=== PATIENT | male | born 1970 | race Caucasian/White ===

== ENCOUNTER → 2018-11-19 | Outpatient (CLI) | payer OTHER ==
[~2018-11-19] MED LIST: CHOL200024 PO; IBUP200C8 PO; MULT-257 PO; OXYC-302 PO; ROSU20TA2 PO; juice plus PO
[2018-11-19 16:12] LABS: HCT (SEDRATE) 50.6 % (39.2-51.8)
[2018-11-19 16:13] LABS: BASOPHILS # (AUTO) 0.04 x10^3/uL (0-0.1); BASOPHILS % (AUTO) 1 % (0-1); EOSINOPHILS # (AUTO) 0.11 x10^3/uL (0-0.4); EOSINOPHILS % (AUTO) 2 % (1-7); LYMPHOCYTES # (AUTO) 1.71 x10^3/uL (1-3.4); LYMPHOCYTES % (AUTO) 25 % (22-44); MD NO; MEAN CORPUSCULAR HEMOGLOBIN 28.9 pg (27.5-34.5); MEAN CORPUSCULAR HGB CONC 32.5 g/dL (33.2-36.2); MEAN CORPUSCULAR VOLUME 88.8 fL (81-97); MEAN PLATELET VOLUME 8.8 fL (7.4-10.4); MONOCYTES # (AUTO) 0.62 x10^3/uL (0.2-0.8); MONOCYTES % (AUTO) 9 % (2-9); NEUTROPHILS # (AUTO) 4.39 x10^3/uL (1.8-6.8); NEUTROPHILS % (AUTO) 64 % (42-75); PLATELET COUNT 250 x10^3/uL (130-400); RED BLOOD COUNT 5.66 x10^6/uL (4.38-5.82)
[2018-11-19 16:13] LABS: MICROSCOPIC NOT IND
[2018-11-19 16:18] LABS: CULTURE INDICATED? NO
[2018-11-19 16:20] LABS: INTERNATIONAL NORMALIZED RATIO 0.95 (0.93-1.1)
[2018-11-19 16:23] LABS: ALANINE AMINOTRANSFERASE 79 U/L (12-78); ALBUMIN 4.4 g/dL (3.4-5.0); ANION GAP 8 mmol/L (5-15); CALCIUM 9.1 mg/dL (8.5-10.1); CHLORIDE 105 mmol/L (98-107)
[2018-11-19 16:26] LABS: ALKALINE PHOSPHATASE 105 U/L (45-117); BILIRUBIN,TOTAL 0.4 mg/dL (0.2-1.0); CREATININE 1.27 mg/dL (0.7-1.3); TOTAL PROTEIN 8.7 g/dL (6.4-8.2)
== END | disposition home or self-care (01) ==
LOC: STAR 14:35
PROVIDERS: ATTEND Orthopaedic Surgery Orthopaedic Surgery of the Spine
DX: Z01.818 Encounter for other preprocedural examination (principal); M48.07 Spinal stenosis, lumbosacral region; M54.17 Radiculopathy, lumbosacral region
CPT/HCPCS: 36415; 71046; 80053; 80074; 81003; 85025; 85610; 85651; 85730; 87806; 93005; G0475

== ENCOUNTER 2018-12-08 06:42 | Inpatient (IN) | payer OTHER ==
[2018-11-19 16:02] VITALS: BP 148/94
[~2018-12-08] VITALS: Ht 180.3 cm; Wt 99.3 kg
[2018-12-08] MEDS ORDERED: FENTANYL PF 100 MCG/2ML ONE ×4 (06:46→12:40)
[2018-12-08] MEDS ORDERED: THROMBIN 5,000 UNIT VIAL TP ONE (06:47)
[2018-12-08] MEDS ORDERED: GENTAMICIN 80 MG/2 ML ONE ×2 (06:47→08:11)
[2018-12-08] MEDS ORDERED: VANCOMYCIN 1,000 MG ONE (06:47)
[2018-12-08] MEDS ORDERED: BUPIVACAINE/PF 0.5% ONE (06:48)
[2018-12-08] MEDS ORDERED: LIDOCAINE/PF 0.5% ,50ML ONE (06:48)
[2018-12-08] MEDS ORDERED: BACITRACIN 50,000 UNIT ONE (06:48)
[2018-12-08] MEDS ORDERED: EPINEPHRINE 1 MG/ML, 1ML ONE (06:48)
[2018-12-08] MEDS ORDERED: morphine SULFATE/PF 0.5 MG/ML, 10ML ONE (06:52)
[2018-12-08] MEDS ORDERED: LACTATED RINGERS 1,000 ML IV SCH (07:05)
[2018-12-08] MEDS ORDERED: GABAPENTIN PO (07:08)
[2018-12-08] MEDS ORDERED: CELEBREX PO (07:08)
[2018-12-08] MEDS ORDERED: KETAMINE 10 MG/ML, 20ML ONE (07:24)
[2018-12-08] MEDS ORDERED: MIDAZOLAM 1 MG/ML, 2ML ONE (07:25)
[2018-12-08] MEDS ORDERED: FENTANYL PF 250 MCG/5ML ONE (07:25)
[2018-12-08] MEDS ORDERED: GLYCOPYRROLATE 0.2MG/1ML, 5ML ONE (07:31)
[2018-12-08] MEDS ORDERED: PROPOFOL 200 ML ONE (07:31)
[2018-12-08] MEDS ORDERED: ONDANSETRON 2MG/ML, 2ML ONE (07:31)
[2018-12-08] MEDS ORDERED: SUCCINYLCHOLINE 20 MG/ML, 10ML ONE (07:31)
[2018-12-08] MEDS ORDERED: PROPOFOL 10 MG/ML, 20ML ONE (07:31)
[2018-12-08] MEDS ORDERED: DEXAMETHASONE 4 MG/ML, 1ML ONE (07:31)
[2018-12-08] MEDS ORDERED: NEOSTIGMINE 1 MG/ML, 10ML ONE (07:31)
[2018-12-08] MEDS ORDERED: ROCURONIUM 10MG/ML,5ML ONE (07:31)
[2018-12-08] MEDS ORDERED: CEFAZOLIN 1,000 MG ONE (07:31)
[2018-12-08] MEDS ORDERED: EPHEDRINE 50 MG/ML, 1ML ONE (07:42)
[2018-12-08] MEDS ORDERED: ONDANSETRON ODT 8 MG PO PRN (09:00)
[2018-12-08] MEDS ORDERED: OXYcodone 5 MG/5 ML ORAL.SOL UDC PO PRN (09:00)
[2018-12-08] MEDS ORDERED: MEPERIDINE/PF 25MG/0.5ML IVPush PRN (09:00)
[2018-12-08] MEDS ORDERED: PROMETHAZINE 25 MG/ML, 1ML IV PRN (09:00)
[2018-12-08] MEDS ORDERED: ONDANSETRON 2MG/ML, 2ML IV PRN ×2 (09:00→15:00)
[2018-12-08] MEDS ORDERED: ACETAMINOPHEN 325 MG TABLET PO PRN (09:00)
[2018-12-08] MEDS ORDERED: LIDOCAINE-MPF 2% ,5ML ONE ×3 (10:50)
[2018-12-08] MEDS: FENTANYL PF 100 MCG/2ML IV PRN ×2 (12:41→12:51)
[2018-12-08] MEDS ORDERED: OXYcodone 5 MG/5 ML ORAL.SOL UDC ONE (12:54)
[2018-12-08] MEDS ORDERED: HYDROmorphone 2 MG/ML, 1ML ONE (12:59)
[2018-12-08] MEDS: HYDROmorphone 2 MG/ML, 1ML IVPush PRN ×2 (13:02→13:45)
[2018-12-08] MEDS ORDERED: RACEPINEPHRINE INH 2.25%, 0.5ML ONE (13:21)
[2018-12-08] MEDS ORDERED: RACEPINEPHRINE INH 2.25%, 0.5ML NPPB PRN (13:30)
[2018-12-08 14:53] VITALS: BP 92/58
[2018-12-08] MEDS: LABETALOL 5MG/ML, 20ML IV SCH ×2 (14:58→23:00)
[2018-12-08] MEDS ORDERED: DIAZEPAM 5 MG/ML, 2ML IV PRN (15:00)
[2018-12-08] MEDS ORDERED: HYDROcodone/APAP 5/325 TABLET PO PRN (15:00)
[2018-12-08] MEDS: D5%-0.9% NACL+KCL 20MEQ 1,000 ML IV SCH (15:41)
[2018-12-08] MEDS ORDERED: CEFAZOLIN PMX 1GM/50ML 50 ML IVPB SCH (19:00)
[2018-12-08 19:55] VITALS: BP 100/59
[2018-12-08] MEDS: DIAZEPAM 5 MG TABLET PO PRN (20:04)
[2018-12-08] MEDS: OXYcodone/APAP 5/325MG TABLET PO PRN (23:49)
[2018-12-09 00:01] VITALS: BP 105/58
[2018-12-09] MEDS: D5%-0.9% NACL+KCL 20MEQ 1,000 ML IV SCH ×3 (00:07→17:22)
[2018-12-09] MEDS ORDERED: CEFAZOLIN PMX 1GM/50ML 50 ML IVPB SCH (03:00)
[2018-12-09] MEDS: DIAZEPAM 5 MG TABLET PO PRN ×3 (03:30→19:15)
[2018-12-09 03:45] VITALS: BP 112/67
[2018-12-09] MEDS: OXYcodone/APAP 5/325MG TABLET PO PRN ×3 (04:03→20:24)
[2018-12-09 07:02] VITALS: BP 103/62
[2018-12-09] MEDS: LABETALOL 5MG/ML, 20ML IV SCH (08:07)
[2018-12-09] MEDS: SENNA/DOCUSATE TABLET PO SCH (08:15)
[2018-12-09] MEDS: GABAPENTIN 300 MG CAPSULE PO SCH ×2 (08:15→20:24)
[2018-12-09] MEDS ORDERED: LABETALOL 5MG/ML, 20ML IV PRN (08:30)
[2018-12-09] MEDS: CEFAZOLIN PMX 1GM/50ML 50 ML IV SCH ×2 (11:33→19:15)
[2018-12-09 12:44] VITALS: BP 116/74
[2018-12-09 20:49] VITALS: BP 108/64
[2018-12-10] MEDS: OXYcodone/APAP 5/325MG TABLET PO PRN ×3 (00:28→08:55)
[2018-12-10] MEDS: D5%-0.9% NACL+KCL 20MEQ 1,000 ML IV SCH ×3 (00:28→17:05)
[2018-12-10 00:53] VITALS: BP 102/63
[2018-12-10] MEDS: DIAZEPAM 5 MG TABLET PO PRN ×3 (02:52→22:26)
[2018-12-10] MEDS: CEFAZOLIN PMX 1GM/50ML 50 ML IV SCH ×2 (02:53→11:19)
[2018-12-10 07:05] VITALS: BP 113/71
[2018-12-10] MEDS: GABAPENTIN 300 MG CAPSULE PO SCH ×3 (08:49→20:52)
[2018-12-10] MEDS: SENNA/DOCUSATE TABLET PO SCH (08:49)
[2018-12-10 12:20] VITALS: BP 108/68
[2018-12-10] MEDS: DEXAMETHASONE 4 MG/ML, 1ML IVPush SCH (18:32)
[2018-12-10] MEDS ORDERED: OXYcodone IR 5MG TABLET PO PRN ×2 (19:00)
[2018-12-10 19:45] VITALS: BP 109/69
[2018-12-10] MEDS: OXYcodone IR 5MG TABLET PO PRN (19:49)
[2018-12-10] MEDS: ACETAMINOPHEN 500 MG TABLET PO SCH (19:49)
[2018-12-11] MEDS: D5%-0.9% NACL+KCL 20MEQ 1,000 ML IV SCH ×3 (01:00→17:00)
[2018-12-11] MEDS: DEXAMETHASONE 4 MG/ML, 1ML IVPush SCH ×4 (01:41→22:13)
[2018-12-11] MEDS: ACETAMINOPHEN 500 MG TABLET PO SCH ×4 (01:41→22:13)
[2018-12-11 03:37] VITALS: BP 107/68
[2018-12-11] MEDS: OXYcodone IR 5MG TABLET PO PRN (03:54)
[2018-12-11] MEDS: DIAZEPAM 5 MG TABLET PO PRN ×3 (04:46→23:58)
[2018-12-11 07:06] VITALS: BP 118/70
[2018-12-11] MEDS: SENNA/DOCUSATE TABLET PO SCH (08:07)
[2018-12-11] MEDS: GABAPENTIN 300 MG CAPSULE PO SCH ×3 (08:08→22:13)
[2018-12-11 13:28] VITALS: BP 133/69
[2018-12-11 20:31] VITALS: BP 115/69
[2018-12-12 03:36] VITALS: BP 135/83
[2018-12-12] MEDS: DEXAMETHASONE 4 MG/ML, 1ML IVPush SCH ×4 (04:08→22:31)
[2018-12-12] MEDS: ACETAMINOPHEN 500 MG TABLET PO SCH ×4 (04:08→22:31)
[2018-12-12 07:16] VITALS: BP 129/71
[2018-12-12] MEDS: SENNA/DOCUSATE TABLET PO SCH (07:53)
[2018-12-12] MEDS: DIAZEPAM 5 MG TABLET PO PRN ×3 (07:53→20:52)
[2018-12-12] MEDS: GABAPENTIN 300 MG CAPSULE PO SCH ×3 (07:53→20:53)
[2018-12-12] MEDS: D5%-0.9% NACL+KCL 20MEQ 1,000 ML IV SCH ×2 (08:00→21:00)
[2018-12-12 12:20] VITALS: BP 112/66
[2018-12-12] MEDS ORDERED: DIAZ5TAB4 PO (16:44)
[2018-12-12 18:35] VITALS: BP 153/92
[2018-12-13 00:17] VITALS: BP 131/76
[2018-12-13] MEDS: DIAZEPAM 5 MG TABLET PO PRN ×2 (03:07→09:32)
[2018-12-13] MEDS: DEXAMETHASONE 4 MG/ML, 1ML IVPush SCH ×2 (04:25→10:05)
[2018-12-13] MEDS: ACETAMINOPHEN 500 MG TABLET PO SCH ×2 (04:25→10:05)
[2018-12-13] MEDS: D5%-0.9% NACL+KCL 20MEQ 1,000 ML IV SCH ×2 (05:00→11:14)
[2018-12-13] MEDS: OXYcodone IR 5MG TABLET PO PRN ×2 (06:50→11:43)
[2018-12-13 07:06] VITALS: BP 124/66
[2018-12-13] MEDS: SENNA/DOCUSATE TABLET PO SCH (08:45)
[2018-12-13] MEDS: GABAPENTIN 300 MG CAPSULE PO SCH (08:45)
[2018-12-13] MEDS ORDERED: OXYC5CAP2 PO (08:54)
== END 2018-12-13 13:11 | disposition home or self-care (01) | DRG 516 ==
LOC: ORIP 06:42 → 4NOR 14:22
PROVIDERS: ADMIT Orthopaedic Surgery Orthopaedic Surgery of the Spine; ATTEND Orthopaedic Surgery Orthopaedic Surgery of the Spine
PROC: 0SW304Z Revision of Internal Fixation Device in Lumbosacral Joint, Open Approach (ICD-10-PCS; 2018-12-08)
PROC: 4A11X4G Monitoring of Peripheral Nervous Electrical Activity, Intraoperative, External Approach (ICD-10-PCS; 2018-12-08)
PROC: 07DR0ZZ Extraction of Iliac Bone Marrow, Open Approach (ICD-10-PCS; 2018-12-08)
PROC: 01NB0ZZ Release Lumbar Nerve, Open Approach (ICD-10-PCS; principal; 2018-12-08 07:30)
DX: T84.216A Breakdown (mechanical) of internal fixation device of vertebrae, initial encounter (principal); M96.0 Pseudarthrosis after fusion or arthrodesis; M54.16 Radiculopathy, lumbar region; Y83.8 Other surgical procedures as the cause of abnormal reaction of the patient, or of later complication, without mention of misadventure at the time of the procedure; Y92.89 Other specified places as the place of occurrence of the external cause
CPT/HCPCS: 36415; 72100; J3490; S0020; 85014; 85018; 86850; 86900; 86923; 94640; C1713; G0378; J0171; J0690; J1100; J1170; J2001; J2250; J2270; J2274; J2405; J2704; J2710; J3010; J3370; C1751; C1762; J0330; J1580; J3480; J7120

== ENCOUNTER 2019-11-23 13:12 | Outpatient (CLI) | payer OTHER ==
[~2019-11-23 13:12] MED LIST changes: +CELEBREX PO; +DIAZ5TAB4 PO; +GABAPENTIN PO; +OXYC5CAP2 PO
[2019-11-23] MEDS ORDERED: GABA600T7 PO (13:41)
[2019-11-23 14:26] LABS: BASOPHILS # (AUTO) 0.03 x10^3/uL (0-0.1); BASOPHILS % (AUTO) 0 % (0-1); EOSINOPHILS % (AUTO) 1 % (1-7); LYMPHOCYTES # (AUTO) 2.06 x10^3/uL (1-3.4); LYMPHOCYTES % (AUTO) 30 % (22-44); MD NO; MEAN CORPUSCULAR HEMOGLOBIN 28.8 pg (27.5-34.5); MEAN CORPUSCULAR HGB CONC 33.2 g/dL (33.2-36.2); MEAN CORPUSCULAR VOLUME 86.7 fL (81-97); MEAN PLATELET VOLUME 8.8 fL (7.4-10.4); MONOCYTES # (AUTO) 0.81 x10^3/uL (0.2-0.8); MONOCYTES % (AUTO) 12 % (2-9); NEUTROPHILS # (AUTO) 3.79 x10^3/uL (1.8-6.8); NEUTROPHILS % (AUTO) 56 % (42-75); PLATELET COUNT 254 x10^3/uL (130-400); RED BLOOD COUNT 5.47 x10^6/uL (4.38-5.82); RED CELL DISTRIBUTION WIDTH 14.3 % (9.4-14.8)
[2019-11-23 14:35] LABS: MICROSCOPIC NOT IND
[2019-11-23 14:35] LABS: ALANINE AMINOTRANSFERASE 43 U/L (12-78); ANION GAP 7 mmol/L (5-15); CALCIUM 8.9 mg/dL (8.5-10.1); CHLORIDE 109 mmol/L (98-107); CREATININE 1.23 mg/dL (0.7-1.3)
[2019-11-23 14:38] LABS: ALKALINE PHOSPHATASE 112 U/L (45-117); BILIRUBIN,TOTAL 0.4 mg/dL (0.2-1.0); TOTAL PROTEIN 8.1 g/dL (6.4-8.2)
[2019-11-23 14:48] LABS: HCT (SEDRATE) 47.9 % (39.2-51.8)
[2019-11-23 17:46] LABS: INTERNATIONAL NORMALIZED RATIO 0.93 (0.93-1.1); PROTHROMBIN TIME 9.9 Seconds (9.6-11.5)
== END 2019-11-23 23:59 | disposition home or self-care (01) ==
LOC: STAR 13:12
PROVIDERS: ATTEND Orthopaedic Surgery Orthopaedic Surgery of the Spine
DX: Z01.818 Encounter for other preprocedural examination (principal); M48.061 Spinal stenosis, lumbar region without neurogenic claudication; M54.16 Radiculopathy, lumbar region
CPT/HCPCS: 36415; 71046; 80053; 80074; 81003; 85025; 85610; 85651; 85730; 87806; 93005; G0475

== ENCOUNTER 2019-11-30 05:45 | Inpatient (IN) | payer OTHER ==
[~2019-11-30] VITALS: Ht 180.3 cm; Wt 99.0 kg
[~2019-11-30 05:45] MED LIST changes: +GABA600T7 PO
[2019-11-30] MEDS ORDERED: HEPARIN 1,000 UNITS/ML, 30ML ONE (06:14)
[2019-11-30] MEDS ORDERED: LACTATED RINGERS 1,000 ML IV SCH (06:34)
[2019-11-30 06:37] VITALS: BP 121/87
[2019-11-30] MEDS ORDERED: CHLORHEXIDINE 15 ML UDC ONE (06:41)
[2019-11-30] MEDS ORDERED: GENTAMICIN 80 MG/2 ML ONE ×2 (06:44→07:21)
[2019-11-30] MEDS ORDERED: BUPIVACAINE/PF-EPI 0.5% 1:200K ONE (06:44)
[2019-11-30] MEDS ORDERED: FENTANYL PF 100 MCG/2ML ONE (06:44)
[2019-11-30] MEDS ORDERED: morphine SULFATE/PF 0.5 MG/ML, 10ML ONE (06:45)
[2019-11-30] MEDS ORDERED: LIDOCAINE 1%-EPI 1:100K, 20ML ONE (06:45)
[2019-11-30] MEDS ORDERED: VANCOMYCIN 1,000 MG ONE (06:45)
[2019-11-30] MEDS ORDERED: BACITRACIN 50,000 UNIT ONE (06:45)
[2019-11-30] MEDS ORDERED: CHLORHEXIDINE 15 ML UDC MM ONE (07:00)
[2019-11-30] MEDS ORDERED: KETAMINE 10 MG/ML, 20ML ONE (07:18)
[2019-11-30] MEDS ORDERED: LABETALOL 5MG/ML, 20ML ONE (07:18)
[2019-11-30] MEDS ORDERED: LIDOCAINE 1%, 20ML ONE (07:18)
[2019-11-30] MEDS ORDERED: MAGNESIUM SULFATE 1 GM/2 ML ONE (07:18)
[2019-11-30] MEDS ORDERED: GLYCOPYRROLATE 0.2MG/1ML, 5ML ONE (07:24)
[2019-11-30] MEDS ORDERED: DEXAMETHASONE 4 MG/ML, 1ML ONE (07:24)
[2019-11-30] MEDS ORDERED: MIDAZOLAM 1 MG/ML, 2ML ONE ×2 (07:24)
[2019-11-30] MEDS ORDERED: LIDOCAINE-MPF 2% ,5ML ONE (07:24)
[2019-11-30] MEDS ORDERED: PROPOFOL 10 MG/ML, 20ML ONE (07:24)
[2019-11-30] MEDS ORDERED: FENTANYL PF 250 MCG/5ML ONE (07:24)
[2019-11-30] MEDS ORDERED: ROCURONIUM 10MG/ML,5ML ONE (07:24)
[2019-11-30] MEDS ORDERED: HYDROcodone/APAP 7.5-325MG/15ML UDC PO PRN (07:30)
[2019-11-30] MEDS ORDERED: hydrALAzine 20 MG/ML, 1ML IV PRN (07:30)
[2019-11-30] MEDS ORDERED: ONDANSETRON 2MG/ML, 2ML IVPush PRN (07:30)
[2019-11-30] MEDS ORDERED: EPHEDRINE 50 MG/ML, 1ML IM PRN (07:30)
[2019-11-30] MEDS ORDERED: DIPHENHYDRAMINE 50 MG/ML, 1ML IVPush PRN (07:30)
[2019-11-30] MEDS ORDERED: MEPERIDINE/PF 25MG/0.5ML IVPush PRN (07:30)
[2019-11-30] MEDS ORDERED: morphine SULFATE 10 MG/ML, 1ML IVPush PRN (07:30)
[2019-11-30] MEDS ORDERED: LORazepam 2 MG/ML, 1ML IVPush PRN (07:30)
[2019-11-30] MEDS ORDERED: METOCLOPRAMIDE 5 MG/ML, 2ML IVPush PRN (07:30)
[2019-11-30] MEDS ORDERED: EPHEDRINE 50 MG/ML, 1ML IVPush PRN (07:30)
[2019-11-30] MEDS ORDERED: HALOPERIDOL 5 MG/ML IV PRN (07:30)
[2019-11-30] MEDS ORDERED: OXYcodone 5 MG/5 ML ORAL.SOL UDC PO PRN (07:30)
[2019-11-30] MEDS ORDERED: ACETAMINOPHEN 325 MG TABLET PO PRN (07:30)
[2019-11-30] MEDS ORDERED: LABETALOL 5MG/ML, 20ML IV PRN ×2 (07:30→14:30)
[2019-11-30] MEDS ORDERED: MIDAZOLAM 1 MG/ML, 2ML IV PRN (07:30)
[2019-11-30] MEDS ORDERED: FENTANYL PF 100 MCG/2ML IV PRN (07:30)
[2019-11-30] MEDS ORDERED: DIAZEPAM 5 MG/ML, 2ML IVPush PRN (07:30)
[2019-11-30] MEDS ORDERED: ALBUTEROL/IPRATROPIUM 2.5MG/0.5MG, 3 ML NPPB PRN (07:30)
[2019-11-30] MEDS ORDERED: CEFAZOLIN 1,000 MG ONE (07:33)
[2019-11-30] MEDS ORDERED: METHOCARBAMOL 1,000 MG in DEXTROSE 5% 100 ML IV PRN (10:00)
[2019-11-30] MEDS ORDERED: HYDROmorphone 2 MG/ML, 1ML ONE (11:55)
[2019-11-30] MEDS ORDERED: DIAZEPAM 5 MG/ML, 2ML ONE (11:56)
[2019-11-30] MEDS: HYDROmorphone 1 MG/ML, 1ML INJ IVPush PRN ×4 (11:58→12:30)
[2019-11-30 13:05] VITALS: BP 105/59
[2019-11-30] MEDS ORDERED: ONDANSETRON 2MG/ML, 2ML IV PRN (14:30)
[2019-11-30] MEDS ORDERED: HYDROcodone/APAP 5/325 TABLET PO PRN (14:30)
[2019-11-30] MEDS ORDERED: DIAZEPAM 5 MG/ML, 2ML IV PRN (14:30)
[2019-11-30] MEDS: D5%-0.9% NACL+KCL 20MEQ 1,000 ML IV SCH (16:39)
[2019-11-30] MEDS: CEFAZOLIN PMX 1GM/50ML 50 ML IVPB SCH (18:14)
[2019-11-30] MEDS: GABAPENTIN 300 MG CAPSULE PO SCH ×2 (18:14→22:35)
[2019-11-30 19:50] VITALS: BP 108/70
[2019-11-30] MEDS: ATORVASTATIN 80 MG TABLET PO SCH (21:00)
[2019-11-30 23:53] VITALS: BP 110/68
[2019-12-01] MEDS: DIAZEPAM 5 MG TABLET PO PRN ×4 (00:45→22:16)
[2019-12-01] MEDS: D5%-0.9% NACL+KCL 20MEQ 1,000 ML IV SCH ×3 (00:45→21:25)
[2019-12-01] MEDS: CEFAZOLIN PMX 1GM/50ML 50 ML IVPB SCH ×3 (01:38→18:20)
[2019-12-01 02:48] VITALS: BP 117/76
[2019-12-01 07:40] VITALS: BP 112/71
[2019-12-01] MEDS: GABAPENTIN 300 MG CAPSULE PO SCH ×3 (08:30→22:17)
[2019-12-01] MEDS: MULTIVITAMIN 1 TABLET PO SCH (08:30)
[2019-12-01] MEDS: SENNA/DOCUSATE TABLET PO SCH (08:36)
[2019-12-01 12:08] VITALS: BP 110/70
[2019-12-01 20:30] VITALS: BP 129/61
[2019-12-01] MEDS: ATORVASTATIN 80 MG TABLET PO SCH (21:00)
[2019-12-02] MEDS: CEFAZOLIN PMX 1GM/50ML 50 ML IVPB SCH ×3 (03:15→19:00)
[2019-12-02 03:39] VITALS: BP 124/80
[2019-12-02] MEDS: D5%-0.9% NACL+KCL 20MEQ 1,000 ML IV SCH ×2 (04:06→16:01)
[2019-12-02] MEDS: DIAZEPAM 5 MG TABLET PO PRN ×3 (04:12→18:15)
[2019-12-02 07:45] VITALS: BP 144/72
[2019-12-02] MEDS: GABAPENTIN 300 MG CAPSULE PO SCH ×3 (09:09→20:55)
[2019-12-02] MEDS: MULTIVITAMIN 1 TABLET PO SCH (09:09)
[2019-12-02] MEDS: SENNA/DOCUSATE TABLET PO SCH (09:10)
[2019-12-02 14:15] VITALS: BP 126/83
[2019-12-02] MEDS: OXYcodone IR 5MG TABLET PO PRN (15:53)
[2019-12-02 19:05] VITALS: BP 131/87
[2019-12-02] MEDS: ATORVASTATIN 80 MG TABLET PO SCH (20:52)
[2019-12-03] MEDS: DIAZEPAM 5 MG TABLET PO PRN ×3 (00:21→12:24)
[2019-12-03] MEDS: D5%-0.9% NACL+KCL 20MEQ 1,000 ML IV SCH ×2 (02:25→12:25)
[2019-12-03 02:31] VITALS: BP 115/67
[2019-12-03] MEDS ORDERED: ACETAMINOPHEN 325 MG TABLET PO PRN (03:45)
[2019-12-03 08:00] VITALS: BP 120/83
[2019-12-03] MEDS: SENNA/DOCUSATE TABLET PO SCH (09:29)
[2019-12-03] MEDS: GABAPENTIN 300 MG CAPSULE PO SCH (09:29)
[2019-12-03] MEDS: MULTIVITAMIN 1 TABLET PO SCH (09:29)
[2019-12-03] MEDS ORDERED: OXYC5CAP2 PO (11:52)
[2019-12-03 13:33] VITALS: BP 122/89
[2019-12-03] MEDS: OXYcodone IR 5MG TABLET PO PRN (14:55)
== END 2019-12-03 15:08 | disposition home or self-care (01) | DRG 460 ==
LOC: ORIP 05:45 → 4NE 12:59 → DCLOUNGE 12-03 15:02
PROVIDERS: ADMIT Orthopaedic Surgery Orthopaedic Surgery of the Spine; ATTEND Orthopaedic Surgery Orthopaedic Surgery of the Spine
PROC: 00BY0ZZ Excision of Lumbar Spinal Cord, Open Approach (ICD-10-PCS; 2019-11-30)
PROC: 01NB0ZZ Release Lumbar Nerve, Open Approach (ICD-10-PCS; 2019-11-30)
PROC: 00PV0YZ Removal of Other Device from Spinal Cord, Open Approach (ICD-10-PCS; 2019-11-30)
PROC: 0QB30ZZ Excision of Left Pelvic Bone, Open Approach (ICD-10-PCS; 2019-11-30)
PROC: 0QH004Z Insertion of Internal Fixation Device into Lumbar Vertebra, Open Approach (ICD-10-PCS; 2019-11-30)
PROC: 4A10X4G Monitoring of Central Nervous Electrical Activity, Intraoperative, External Approach (ICD-10-PCS; 2019-11-30)
PROC: 00HU33Z Insertion of Infusion Device into Spinal Canal, Percutaneous Approach (ICD-10-PCS; 2019-11-30)
PROC: 0SG30AJ Fusion of Lumbosacral Joint with Interbody Fusion Device, Posterior Approach, Anterior Column, Open Approach (ICD-10-PCS; principal; 2019-11-30 11:30)
DX: M48.061 Spinal stenosis, lumbar region without neurogenic claudication (principal); M53.2X6 Spinal instabilities, lumbar region; M54.18 Radiculopathy, sacral and sacrococcygeal region; I10 Essential (primary) hypertension; Z20.828 Contact with and (suspected) exposure to other viral communicable diseases
CPT/HCPCS: 36415; 72100; J3490; 71045; 85014; 85018; 86850; 86900; 86923; 95938; 95941; C1713; G0378; J0690; J1100; J1170; J1644; J2250; J2270; J2274; J2405; J2704; J3010; J3360; J3370; J3475; C1751; C1762; C9352; J1580; J2800; J3480; J7120; U0001-CS